=== PATIENT | female | born 1970 | race Caucasian/White ===

== ENCOUNTER 2017-04-14 13:16 | Emergency (ER) | payer MEDICARE ==
[2017-04-14 13:58] LABS: URINE HCG POC HCG NEGATIVE (Negative)
[2017-04-14] MEDS: IV NORMAL SALINE 1000ML BAG 1,000 ML IV ×2 (14:00)
[2017-04-14 14:01] LABS: BILIRUBIN,URINE SMALL (NEG); COLOR,URINE RED; GLUCOSE,URINE NEGATIVE (NEG); NITRITE,URINE NEGATIVE (NEG); PH,URINE 5.5; PROTEIN,URINE 100 mg/dL (NEG-TRACE)
[2017-04-14] MEDS: MORPHINE SULFATE 2 MG/ML DISP.SYRIN. IV/SQ ×2 (14:01)
[2017-04-14] MEDS: NITROGLYCERIN SUBLINGUAL 0.4 MG BOTTLE OF 25. SL ×4 (14:03→14:25)
[2017-04-14 14:09] LABS: BARBITURATES NEG (NEG); BENZODIAZEPINES NEG (NEG); CANNABINOIDS POS (NEG); COCAINE NEG (NEG); METHADONE NEG (NEG); OPIATES NEG (NEG); PHENCYCLIDINE NEG (NEG)
[2017-04-14 14:10] LABS: AMPHETAMINE/METHAMPHETAMINE POS (NEG); ETHANOL, URINE NEG (NEG)
[2017-04-14 14:15] LABS: BACTERIA,URINE MANY /HPF (0-FEW); CLARITY,URINE HAZY; RBC,URINE >40 /HPF (0-2); SQUAMOUS EPITHELIAL CELL,UR MANY /LPF; WBC,URINE OCC /HPF (0-4)
[2017-04-14 14:28] LABS: ADD MAN DIFF? NO
[2017-04-14 14:30] LABS: BASO # 0.1 x10^3/uL (0.0-0.2); BASO % 1 % (0-3); EOS # 0.3 x10^3/uL (0.0-0.7); EOS % 3 % (0-3); HEMATOCRIT 32.2 % (36.0-47.0); HEMOGLOBIN 9.9 g/dL (12.0-15.5); LYMPH # 2.3 x10^3/uL (1.0-4.8); LYMPH % 28 % (24-48); MEAN CORPUSCULAR HEMOGLOBIN 24 pg (25-35); MEAN CORPUSCULAR HGB CONC 31 g/dL (31-37); MEAN CORPUSCULAR VOLUME 76 fL (79-100); MONO # 0.8 x10^3/uL (0.0-1.1); MONO % 10 % (0-9); NEUT # 4.6 x10^3uL (1.8-7.7); NEUT % 57 % (31-73); PLATELET COUNT 373 x10^3/uL (140-400); RED BLOOD COUNT 4.23 x10^6/uL (3.50-5.40); RED CELL DISTRIBUTION WIDTH 20.6 % (11.5-14.5)
[2017-04-14 14:40] LABS: INR 0.9 (0.8-1.1); PROTHROMBIN TIME PATIENT 11.7 SEC (11.7-14.0)
[2017-04-14 14:53] LABS: ANISOCYTOSIS MOD; HYPOCHROMIA MOD; MICROCYTOSIS SLIGHT; PLT ESTIMATE ADEQUATE (ADEQUATE); POLYCHROMASIA SLIGHT
[2017-04-14 15:08] LABS: ANION GAP 13 (6-14); BLOOD UREA NITROGEN 13 mg/dL (7-20); CALCIUM 8.2 mg/dL (8.5-10.1); CARBON DIOXIDE 24 mmol/L (21-32); CHLORIDE 101 mmol/L (98-107); CREATININE 0.9 mg/dL (0.6-1.0); GFR 67.7; GLUCOSE 105 mg/dL (70-99); SODIUM 138 mmol/L (136-145)
[2017-04-14 15:14] LABS: ALBUMIN 3.2 g/dL (3.4-5.0); ALK PHOS 99 U/L (46-116); ALT (SGPT) 14 U/L (14-59); AST (SGOT) 23 U/L (15-37); DIRECT BILIRUBIN 0.1 mg/dL (0.0-0.2); LIPASE 122 U/L (73-393); MAGNESIUM 1.7 mg/dL (1.8-2.4); TOTAL BILIRUBIN 0.2 mg/dL (0.2-1.0); TOTAL PROTEIN 7.7 g/dL (6.4-8.2)
[2017-04-14 15:22] LABS: CKMB INDEX 1.1 % (0-4); CKMB MASS 1.1 ng/mL (0.0-3.6); CREATINE KINASE 102 U/L (26-192)
[2017-04-14 15:22] LABS: NT-PRO BNP 333 pg/mL (0-124)
[2017-04-14] MEDS ORDERED: ONDANSETRON PF 4 MG/2 ML VIAL. IV ×2 (15:45)
[2017-04-14] MEDS ORDERED: MORPHINE SULFATE 2 MG/ML DISP.SYRIN. IV ×2 (15:45)
[2017-04-14] MEDS: POTASSIUM CHLORIDE 20 MEQ TABLET.ER. PO ×2 (16:49)
[2017-04-14] MEDS: ASPIRIN 325 MG TABLET PO ×2 (16:50)
[2017-04-14] MEDS: MAGNESIUM SULFATE 2GM 50 ML IV ×2 (16:50)
[2017-04-14 16:52] LABS: CHOLESTEROL 153 mg/dL (0-200); HDLC 66 mg/dL (40-60); LDLC 63 mg/dL (0-100); NON-HDL CHOLESTEROL 87 mg/dL (0-129); TRIGLYCERIDES 119 mg/dL (0-150); VLDLC 24 mg/dL (0-40)
[2017-04-14 16:55] LABS: CHOLESTEROL/HDL RATIO 2.3
[2017-04-14 17:30] LABS: THYROID STIM HORMONE (TSH) 2.358 uIU/mL (0.358-3.74)
[2017-04-14] MEDS ORDERED: amLODIPine BESYLATE 5 MG TABLET PO ×2 (17:30)
[2017-04-14 17:40] LABS: TROPONINI < 0.017 ng/mL (0.000-0.055)
== END 2017-04-14 18:07 | disposition other institution (70) ==
LOC: ER 13:16 → ED HOLD 15:30
DX: R07.89 Other chest pain (principal); F17.200 Nicotine dependence, unspecified, uncomplicated; F11.10 Opioid abuse, uncomplicated; F12.10 Cannabis abuse, uncomplicated; G40.909 Epilepsy, unspecified, not intractable, without status epilepticus; Z98.84 Bariatric surgery status
CPT/HCPCS: 36415; 71045; 76830; 76856; 80048; 80061; 80076; 80307; 81001; 81025; 82553; 83690; 83735; 83880; 84443; 84484; 85025; 85379; 85610; 87086; 93005; 96361; 96365; 96375; 99285-25; J2060; J2270; J7030; J7060